=== PATIENT | female | born 1945 | race Caucasian/White ===

== ENCOUNTER 2016-08-16 09:57 | Day surgery (SDC) | payer MEDICARE, OTHER ==
[~2016-08-16] VITALS: Ht 154.9 cm; Wt 85.0 kg
[~2016-08-16 09:57] MED LIST: 0.9% Sodium Chloride 1,000 ML IV SCH; CHOL200035 PO; RESTASIS OPTH OU; Sodium Chloride LOK Flush 10 mL Syringe IV PRN; TRIA1CAP PO; [UNRECOGNIZED DRUG - CODE]; fentaNYL-PF 50 mCg/mL 2 mL Inj IVPUSH PRN
[2016-08-16] MEDS ORDERED: PRAV40TA PO (11:08)
[2016-08-16] MEDS ORDERED: [UNRECOGNIZED DRUG - OTHER] PO (11:08)
[2016-08-16] MEDS ORDERED: COD1CAPS6 PO (11:08)
[2016-08-16] MEDS ORDERED: [UNRECOGNIZED DRUG - MIXTURE] VAGINAL (11:08)
[2016-08-16] MEDS ORDERED: LIFI1DRO OP (11:08)
[2016-08-16] MEDS ORDERED: [UNRECOGNIZED DRUG - OTHER] PO (11:08)
[2016-08-16] MEDS ORDERED: ASPI-973 PO (11:08)
[2016-08-16] MEDS ORDERED: THYR16.2 PO (11:08)
[2016-08-16 11:09] VITALS: BP 121/67; PULSE 72; RESP 16; O2SAT 99
[2016-08-16 12:21] VITALS: BP 106/61; PULSE 72; RESP 17; O2SAT 94
[2016-08-16 12:30] VITALS: BP 117/67; PULSE 73; RESP 15; O2SAT 96
[2016-08-16 12:40] VITALS: BP 116/65; PULSE 75; RESP 15; O2SAT 97
--- NOTE | 2016-08-16 14:06 | ENDO ---
[address] [address] ENDOSCOPY PROCEDURE PATIENT: CHRIS JOHNSON : 1945 MR#: [id number] ADMIT: 08/16/2016 JOB ID: [id number] PROCEDURE: Colonoscopy. INDICATION: Patient with a history of colon polyps. ANESTHESIA: Patient's ASA classification is two. Mallampati score is two. MEDICATIONS: 1. Versed 5 mg. 2. Fentanyl 125 mcg. INSTRUMENT USED: [id number] PREPARATION QUALITY: Good. PROCEDURE DETAILS: After informed consent was obtained, the patient was brought to the GI suite, where she was placed on oxygen via nasal cannula and monitored with continuous pulse oximeter, telemetry, and blood pressure monitoring. A time-out was performed, then she was placed in the left lateral decubitus position and medications were administered for sedation. Digital rectal exam was performed, which was unremarkable. The colonoscope was then inserted into the rectum and advanced under direct visualization to the cecum, which was identified by the presence of the ileocecal valve and appendiceal orifice. Once the cecum was reached, the colonoscope was withdrawn back to the rectum as the mucosa and lumen were examined. In the rectum, retroflexion was performed. Following retroflexion, the remaining air in the rectum was suctioned, and the procedure was completed. FINDINGS: 1. In the cecum there was a flat polyp measuring approximately 4 mm which was removed with cold biopsy forceps. 2. In the ascending colon there was an approximately 8-9 mm flat polyp overlying a fold. The polyp was lifted using normal saline and then removed piecemeal with a hot snare. The resulting mucosal defect was approximated the placement of three hemoclips. 3. Just adjacent to the previously mentioned polyp, there was an approximately 5 mm sessile polyp that was removed with a hot snare. IMPRESSION: 1. Cecal polyp. 2. Two ascending polyps. RECOMMENDATIONS: 1. Avoid NSAIDs and anticoagulants for 72 hours. 2. Repeat colonoscopy in three years. COMPLICATIONS: None. ESTIMATED BLOOD LOSS: Less than 5 mL.
--- NOTE | 2016-08-19 16:02 | PATH ---
SURGICAL PATHOLOGY Attending Physician:Avelino Lezama CASE STATUS: Signed Out PATIENT NAME: CHRIS JOHNSON PID: [id number] : 1945 DATE COLLECTED:08/16/2016 21:49 SPECIMEN: 1: Colon, Biopsy 2: Colon, Biopsy 3: Colon, Biopsy CLINICAL HISTORY: 1). ASCENDING COLON POLYP (LARGE) 2). CECUM POLYP 3). SMALL ASCENDING COLON POLYP FINAL DIAGNOSIS: 1. Ascending Colon, Polyp Large, Biopsy: Tubular adenoma in 9 of 11 fragments. Sessile serrated adenoma in 2 fragments. 2. Cecum, Polyp, Biopsy: Sessile serrated adenoma. 3. Ascending Colon, Small Polyp, Biopsy: Tubular adenoma. ICD10: D12.2 D12.0 GROSS DESCRIPTION: The specimen is received in three formalin filled containers labeled with the patient's name. 1). The specimen is sublabeled "ascending colon polyp (large )" and consists of multiple portions of tissue which aggregate to 0.7 x 0.6 x 0.3 CM. The specimen is entirely submitted in cassette 1A. 2). The specimen is sublabeled "cecum polyp" and consists of multiple portions of tissue which aggregate to 0.3 x 0.3 x 0.2 CM. The specimen is entirely submitted in cassette 2A. 3). The specimen is sublabeled "small ascending colon polyp" and consists of multiple portions of tissue which aggregate to 0.3 x 0.3 x 0.2 CM. The specimen is entirely submitted in cassettes 3A. 08/16/2016 [facility] ICD-9 CODES: CPT CODES: 1: 48380 2: 20056 3: 22265 Electronically Signed Out Dolores Nunez MD [facility], [place] [address] Technical component performed at [facility], [facility] [address], [place], [address]
== END 2016-08-16 23:59 | disposition home or self-care (01) ==
LOC: END 09:57
PROVIDERS: ATTEND Internal Medicine Gastroenterology
DX: Z12.11 Encounter for screening for malignant neoplasm of colon (principal); Z86.010 Personal history of colon polyps; D12.2 Benign neoplasm of ascending colon; D12.0 Benign neoplasm of cecum; I10 Essential (primary) hypertension; E78.5 Hyperlipidemia, unspecified; E03.9 Hypothyroidism, unspecified; M19.90 Unspecified osteoarthritis, unspecified site; Z79.82 Long term (current) use of aspirin
CPT/HCPCS: 45380; 45381; 45385; 88305; 99153; G0500; J2250; J3010; J7030